=== PATIENT | male | born 1980 | race Caucasian/White ===

== ENCOUNTER 2018-04-08 20:18 | Emergency (ER) | payer MEDICAID ==
[~2018-04-08] VITALS: Ht 200.7 cm; Wt 104.3 kg
[2018-04-08] MEDS ORDERED: CHANTIX1 MG (20:31)
[2018-04-08] MEDS ORDERED: AMARYL2 MG (20:33)
[2018-04-08] MEDS ORDERED: VALIUM5 MG PO (20:33)
[2018-04-08] MEDS ORDERED: LOPRESSOR100 M1 (20:33)
[2018-04-08] MEDS ORDERED: GLUCOPHAGE1000 MG (20:33)
[2018-04-08] MEDS ORDERED: ADVAIR HFA 230M12 GM (20:34)
[2018-04-08] MEDS ORDERED: RISPERDAL 3 MG T3 M1 (20:34)
[2018-04-08] MEDS ORDERED: PROTONIX40 M1 (20:34)
[2018-04-08] MEDS ORDERED: CELEBREX 200 M200 M1 (20:35)
[2018-04-08] MEDS ORDERED: NEURONTIN 300300 M1 (20:35)
[2018-04-08 21:41] LABS: URINE BLOOD NEGATIVE (Negative); URINE CLARITY CLEAR; URINE COLOR YELLOW; URINE GLUCOSE-RANDOM 1+ (Negative); URINE KETONES 1+ (Negative); URINE LEUKOCYTES-REFLEX NEGATIVE (Negative); URINE NITRITE-REFLEX NEGATIVE (Negative); URINE PROTEIN 1+ (Negative); URINE SPECIFIC GRAVITY >= 1.030 (1.005-1.030)
[2018-04-08 21:44] LABS: URINE BILIRUBIN 1+ (Negative)
[2018-04-08 21:45] LABS: ICTOTEST (BILI CONFIRMATORY) Negative (Negative)
[2018-04-08 22:11] LABS: BACTERIA-REFLEX 1-9 Few /HPF (None Seen); CALCIUM OXALATE 4-10 Moderate /LPF (None Seen); CASTS None Seen /LPF (None Seen); CRYSTALS None Seen /LPF (None Seen); MUCUS 4-6 Moderate strn/LPF (None Seen); SQUAMOUS 0-3 Few /LPF (0-3); URINE RBC 0-2 Rare /HPF (0-2); URINE WBC-REFLEX None Seen /HPF (0-5)
[2018-04-08] MEDS ORDERED: NORCO 5-325 TA1 EAC1 PO (22:20)
[2018-04-08] MEDS ORDERED: CIPRO250 M2 PO (22:20)
[2018-04-08] MEDS ORDERED: FLEXERIL PO (22:20)
[2018-04-08 22:46] VITALS: BP 128/86
== END 2018-04-08 22:47 | disposition home or self-care (01) ==
LOC: M.ERS 20:18
PROVIDERS: Nurse Practitioner
DX: N39.0 Urinary tract infection, site not specified (principal); J44.9 Chronic obstructive pulmonary disease, unspecified; K21.9 Gastro-esophageal reflux disease without esophagitis; E11.9 Type 2 diabetes mellitus without complications; F41.0 Panic disorder [episodic paroxysmal anxiety]; I10 Essential (primary) hypertension; F25.0 Schizoaffective disorder, bipolar type; Z88.6 Allergy status to analgesic agent; F17.210 Nicotine dependence, cigarettes, uncomplicated

== ENCOUNTER 2018-06-25 18:21 | Emergency (ER) | payer MEDICAID ==
[~2018-06-25] VITALS: Ht 200.7 cm; Wt 149.7 kg
[~2018-06-25 18:21] MED LIST: ADVAIR HFA 230M12 GM; AMARYL2 MG; CELEBREX 200 M200 M1; CHANTIX1 MG; CIPRO250 M2 PO; FLEXERIL PO; GLUCOPHAGE1000 MG; LOPRESSOR100 M1; NEURONTIN 300300 M1; NORCO 5-325 TA1 EAC1 PO; PROTONIX40 M1; RISPERDAL 3 MG T3 M1; VALIUM5 MG PO
[2018-06-25] MEDS ORDERED: VENTOLIN HFA 1818 GM INH (19:28)
[2018-06-25] MEDS ORDERED: MEDROLDOSEPACK PO (19:28)
[2018-06-25] MEDS ORDERED: ZPAK PO (19:29)
[2018-06-25] MEDS ORDERED: PROMETH-CODEIN 65 ML PO (19:30)
[2018-06-25 19:58] VITALS: BP 139/88
== END 2018-06-25 19:59 | disposition home or self-care (01) ==
LOC: M.ERS 18:21
DX: J20.9 Acute bronchitis, unspecified (principal); R91.1 Solitary pulmonary nodule; J44.9 Chronic obstructive pulmonary disease, unspecified; E11.9 Type 2 diabetes mellitus without complications; K21.9 Gastro-esophageal reflux disease without esophagitis; I10 Essential (primary) hypertension; F41.9 Anxiety disorder, unspecified; Z90.49 Acquired absence of other specified parts of digestive tract; F25.0 Schizoaffective disorder, bipolar type; F17.210 Nicotine dependence, cigarettes, uncomplicated; Z88.8 Allergy status to other drugs, medicaments and biological substances

== ENCOUNTER 2018-07-08 21:02 | Emergency (ER) | payer MEDICAID ==
[~2018-07-08] VITALS: Ht 200.7 cm; Wt 149.7 kg
[~2018-07-08 21:02] MED LIST changes: +MEDROLDOSEPACK PO; +PROMETH-CODEIN 65 ML PO; +VENTOLIN HFA 1818 GM INH; +ZPAK PO
[2018-07-08] MEDS ORDERED: NORCO 5-325 TA1 EACH PO (21:55)
[2018-07-08] MEDS ORDERED: NAPROSYN500 MG PO (21:55)
[2018-07-08] MEDS ORDERED: ROBAXIN 750 MG750 M1 PO (21:55)
[2018-07-08 22:13] VITALS: BP 155/85
== END 2018-07-08 22:14 | disposition home or self-care (01) ==
LOC: M.ERS 21:02
DX: S39.012A Strain of muscle, fascia and tendon of lower back, initial encounter (principal); J44.9 Chronic obstructive pulmonary disease, unspecified; E11.9 Type 2 diabetes mellitus without complications; K21.9 Gastro-esophageal reflux disease without esophagitis; I10 Essential (primary) hypertension; F41.9 Anxiety disorder, unspecified; F25.0 Schizoaffective disorder, bipolar type; Z90.49 Acquired absence of other specified parts of digestive tract; Z88.6 Allergy status to analgesic agent; X50.9XXA Other and unspecified overexertion or strenuous movements or postures, initial encounter; Y93.89 Activity, other specified; Y92.098 Other place in other non-institutional residence as the place of occurrence of the external cause; Y99.8 Other external cause status

== ENCOUNTER 2018-08-30 14:53 | Emergency (ER) | payer MEDICAID ==
[~2018-08-30] VITALS: Ht 200.7 cm; Wt 157.8 kg
[~2018-08-30 14:53] MED LIST changes: +NAPROSYN500 MG PO; +NORCO 5-325 TA1 EACH PO; +ROBAXIN 750 MG750 M1 PO
[2018-08-30 15:23] LABS: URINE BILIRUBIN NEGATIVE (Negative); URINE BLOOD NEGATIVE (Negative); URINE CLARITY CLEAR; URINE COLOR YELLOW; URINE GLUCOSE-RANDOM 3+ (Negative); URINE KETONES NEGATIVE (Negative); URINE LEUKOCYTES-REFLEX NEGATIVE (Negative); URINE NITRITE-REFLEX NEGATIVE (Negative); URINE PROTEIN NEGATIVE (Negative); URINE UROBILINOGEN 0.2 E.U./dl (0.2-1.0)
[2018-08-30 15:24] LABS: HEMATOCRIT 48.8 % (42.0-52.0); HEMOGLOBIN 17.1 gm/dL (14.0-18.0); MCH 31.9 pg (26.0-34.0); MCV 91.1 fL (80.0-100.0); MPV 8.6 fl. (7.2-11.1); NUCLEATED RBCS 0 /100WBC; PLATELET COUNT* 172 thou/uL (150-400); RBC 5.36 mil/uL (4.50-6.00); RDW-CV 13.2 % (10.5-14.5); WBC 9.3 thou/uL (4.0-11.0)
[2018-08-30 15:40] LABS: CALCIUM 9.1 mg/dL (8.5-10.1); POTASSIUM 4.1 mmol/L (3.5-5.1)
[2018-08-30 15:44] LABS: ALBUMIN 3.8 g/dL (3.4-5.0); TOTAL BILIRUBIN 0.4 mg/dL (<0.1-1.0); TOTAL PROTEIN 7.6 g/dL (6.4-8.2)
[2018-08-30 16:03] LABS: ABSOLUTE LYMPHOCYTES 4.7 thou/uL (0.8-5.3); ABSOLUTE MONOCYTES 0.7 thou/uL (0.0-1.2)
[2018-08-30 16:04] LABS: PLATELET ESTIMATE ADEQUATE
[2018-08-30 17:26] VITALS: BP 130/84
== END 2018-08-30 17:26 | disposition home or self-care (01) ==
LOC: M.ERS 14:53
PROVIDERS: Nurse Practitioner Family
DX: R10.12 Left upper quadrant pain (principal); F17.200 Nicotine dependence, unspecified, uncomplicated; J44.9 Chronic obstructive pulmonary disease, unspecified; E11.9 Type 2 diabetes mellitus without complications; K21.9 Gastro-esophageal reflux disease without esophagitis; I10 Essential (primary) hypertension; F41.9 Anxiety disorder, unspecified; F31.9 Bipolar disorder, unspecified; Z90.49 Acquired absence of other specified parts of digestive tract; Z88.6 Allergy status to analgesic agent

== ENCOUNTER 2018-09-04 12:14 | Emergency (ER) | payer MEDICAID ==
[~2018-09-04] VITALS: Ht 200.7 cm; Wt 158.8 kg
[2018-09-04] MEDS ORDERED: ROBAXIN 750 MG750 M1 PO (14:08)
[2018-09-04] MEDS ORDERED: ACETAMINOPHEN-1 EAC1 PO (14:08)
[2018-09-04 14:21] VITALS: BP 147/90
== END 2018-09-04 14:21 | disposition home or self-care (01) ==
LOC: M.ERS 12:14
DX: M54.5 Low back pain (principal); J44.9 Chronic obstructive pulmonary disease, unspecified; E11.9 Type 2 diabetes mellitus without complications; K21.9 Gastro-esophageal reflux disease without esophagitis; I10 Essential (primary) hypertension; F41.9 Anxiety disorder, unspecified; F25.0 Schizoaffective disorder, bipolar type; F17.200 Nicotine dependence, unspecified, uncomplicated; Z88.8 Allergy status to other drugs, medicaments and biological substances

== ENCOUNTER 2018-09-21 20:18 | Emergency (ER) | payer MEDICAID ==
[~2018-09-21] VITALS: Ht 200.7 cm; Wt 158.8 kg
[~2018-09-21 20:18] MED LIST changes: +ACETAMINOPHEN-1 EAC1 PO
[2018-09-21] MEDS ORDERED: INVEGA SUS234 MG/1.5 IM (20:36)
[2018-09-21] MEDS ORDERED: ACETAMINOPHEN-1 EAC1 PO (21:18)
[2018-09-21] MEDS ORDERED: IBUPROFEN 800800 M1 PO (21:26)
[2018-09-21 21:45] VITALS: BP 116/65
== END 2018-09-21 21:47 | disposition home or self-care (01) ==
LOC: M.ERS 20:18
DX: S39.82XA Other specified injuries of lower back, initial encounter (principal); I10 Essential (primary) hypertension; F41.9 Anxiety disorder, unspecified; F25.0 Schizoaffective disorder, bipolar type; K31.84 Gastroparesis; J44.9 Chronic obstructive pulmonary disease, unspecified; E11.9 Type 2 diabetes mellitus without complications; K21.9 Gastro-esophageal reflux disease without esophagitis; F17.210 Nicotine dependence, cigarettes, uncomplicated; Z90.49 Acquired absence of other specified parts of digestive tract; Z88.6 Allergy status to analgesic agent; W00.0XXA Fall on same level due to ice and snow, initial encounter; Y93.89 Activity, other specified; Y92.89 Other specified places as the place of occurrence of the external cause; Y99.8 Other external cause status

== ENCOUNTER 2018-09-27 18:20 | Emergency (ER) | payer MEDICAID ==
[~2018-09-27] VITALS: Ht 200.7 cm; Wt 158.8 kg
[~2018-09-27 18:20] MED LIST changes: +IBUPROFEN 800800 M1 PO; +INVEGA SUS234 MG/1.5 IM
[2018-09-27 20:30] LABS: ABSOLUTE BASOPHILS 0.1 thou/uL (0.0-0.2); ABSOLUTE EOSINOPHILS 0.1 thou/uL (0.0-0.7); ABSOLUTE LYMPHOCYTES 3.1 thou/uL (0.8-5.3); ABSOLUTE MONOCYTES 0.5 thou/uL (0.0-1.2); ABSOLUTE NEUTROPHILS 3.8 thou/uL (1.6-8.1); BASOPHILS 1.4 %; EOSINOPHILS 1.2 %; HEMATOCRIT 48.2 % (42.0-52.0); HEMOGLOBIN 16.8 gm/dL (14.0-18.0); LYMPHOCYTES 40.7 %; MCH 32.2 pg (26.0-34.0); MCHC 34.8 g/dL (28.0-37.0); MCV 92.4 fL (80.0-100.0); MONOCYTES 6.6 %; MPV 8.5 fl. (7.2-11.1); NUCLEATED RBCS 0 /100WBC; PLATELET COUNT* 132 thou/uL (150-400); POLYS 50.1 %; RBC 5.22 mil/uL (4.50-6.00); RDW-CV 13.8 % (10.5-14.5); WBC 7.6 thou/uL (4.0-11.0)
[2018-09-27 20:39] LABS: ANION GAP 7 mmol/L (7-16); BUN 18 mg/dL (7-18); CALCIUM 8.5 mg/dL (8.5-10.1); CHLORIDE 97 mmol/L (98-107); CO2 29 mmol/L (21-32); CREATININE 1.1 mg/dL (0.6-1.3); GLUCOSE 232 mg/dL (70-99); POTASSIUM 4.5 mmol/L (3.5-5.1); SODIUM 133 mmol/L (136-145)
[2018-09-27 20:46] LABS: INFLUENZA A ANTIGEN None Detected (None Detect); INFLUENZA B ANTIGEN None Detected (None Detect)
[2018-09-27 20:46] LABS: ALBUMIN 3.3 g/dL (3.4-5.0); ALKALINE PHOSPHATASE 94 U/L (46-116); SGOT 52 U/L (15-37); SGPT 63 U/L (30-65); TOTAL BILIRUBIN 0.5 mg/dL (<0.1-1.0); TOTAL PROTEIN 6.8 g/dL (6.4-8.2); TROPONIN-I LEVEL <0.06 ng/mL (<0.06)
[2018-09-27] MEDS ORDERED: MEDROLDOSEPACK PO (21:11)
[2018-09-27] MEDS ORDERED: ZPAK PO (21:11)
[2018-09-27] MEDS ORDERED: VENTOLIN HFA 1818 GM INH (21:11)
[2018-09-27] MEDS ORDERED: TESSALON PERLE100 MG PO (21:11)
[2018-09-27 21:36] VITALS: BP 142/86
--- NOTE | 2018-09-28 13:06 | EKG ---
[place] [address] ELECTROCARDIOGRAM REPORT Name: SHAGGY ZAPATA [id number] Admission: 09/27/18 Attend Phys: Discharge: 09/27/18 Date of : 76 Report #: [id number] THIS REPORT FOR: //name// [facility] ED Test Date: 2018-09-27 Test Time: 21:07:14 Pat Name: SHAGGY ZAPATA Department: Room: Gender: M Dough Mixer: MAICO : 1980 Requested By: Gifty Zavaleta Order Number: [id number] MD: Mariano Glez Measurements Intervals [place] Rate: 99 P: 48 AL: 169 QRS: 20 QRSD: 85 T: 124 QT: 349 QTc: 448 Interpretive Statements Sinus rhythm Left atrial enlargement Abnormal R-wave progression, early transition Nonspecific T abnormalities, lateral leads No previous ECG available for comparison Electronically Signed On 09-28-2018 13:06:32 E LEARNING [employer] by Mariano Glez [email or web address] <ELECTRONICALLY SIGNED> By: Mariano Glez MD, [facility] 09/28/18 1306 [id number] 06 Mariano Glez MD, FACC /EPI
== END 2018-09-27 21:37 | disposition home or self-care (01) ==
LOC: M.ERS 18:20
PROVIDERS: Nurse Practitioner Family
DX: J20.9 Acute bronchitis, unspecified (principal); M94.0 Chondrocostal junction syndrome [Tietze]; J44.9 Chronic obstructive pulmonary disease, unspecified; E11.9 Type 2 diabetes mellitus without complications; K21.9 Gastro-esophageal reflux disease without esophagitis; I10 Essential (primary) hypertension; F41.9 Anxiety disorder, unspecified; F25.0 Schizoaffective disorder, bipolar type; K31.84 Gastroparesis; F17.210 Nicotine dependence, cigarettes, uncomplicated; Z90.49 Acquired absence of other specified parts of digestive tract; Z88.6 Allergy status to analgesic agent

== ENCOUNTER 2018-10-23 15:00 | Emergency (ER) | payer MEDICAID ==
[~2018-10-23] VITALS: Ht 200.7 cm; Wt 154.2 kg
[~2018-10-23 15:00] MED LIST changes: +TESSALON PERLE100 MG PO
[2018-10-23] MEDS ORDERED: NORCO 5-325 TA1 EACH PO (15:19)
[2018-10-23 15:24] VITALS: BP 153/99
== END 2018-10-23 15:25 | disposition home or self-care (01) ==
LOC: M.ERS 15:00
DX: M54.5 Low back pain (principal); J44.9 Chronic obstructive pulmonary disease, unspecified; E11.9 Type 2 diabetes mellitus without complications; K21.9 Gastro-esophageal reflux disease without esophagitis; I10 Essential (primary) hypertension; F41.9 Anxiety disorder, unspecified; K31.84 Gastroparesis; F25.0 Schizoaffective disorder, bipolar type; Z88.6 Allergy status to analgesic agent; Z90.49 Acquired absence of other specified parts of digestive tract

== ENCOUNTER 2019-01-03 10:55 | Emergency (ER) | payer MEDICAID ==
[~2019-01-03] VITALS: Ht 200.7 cm; Wt 154.2 kg
[2019-01-03] MEDS ORDERED: DOK100 MG PO (11:15)
[2019-01-03] MEDS ORDERED: ROBAXIN500 MG PO (11:15)
[2019-01-03] MEDS ORDERED: IPRAT-ALBUT 0.5-3 ML INH (13:30)
[2019-01-03] MEDS ORDERED: MEDROLDOSEPACK PO (13:30)
[2019-01-03] MEDS ORDERED: AMOXICILLIN875 MG PO (13:30)
[2019-01-03] MEDS ORDERED: NEBULIZER MISCELL (13:30)
[2019-01-03 14:10] VITALS: BP 133/84
== END 2019-01-03 14:11 | disposition home or self-care (01) ==
LOC: M.ERS 10:55
DX: J44.1 Chronic obstructive pulmonary disease with (acute) exacerbation (principal); E11.9 Type 2 diabetes mellitus without complications; K21.9 Gastro-esophageal reflux disease without esophagitis; I10 Essential (primary) hypertension; F41.9 Anxiety disorder, unspecified; Z90.49 Acquired absence of other specified parts of digestive tract; F17.210 Nicotine dependence, cigarettes, uncomplicated

== ENCOUNTER 2019-01-21 10:29 | Emergency (ER) | payer MEDICAID ==
[~2019-01-21] VITALS: Ht 200.7 cm; Wt 154.2 kg
[~2019-01-21 10:29] MED LIST changes: +AMOXICILLIN875 MG PO; +DOK100 MG PO; +IPRAT-ALBUT 0.5-3 ML INH; +NEBULIZER MISCELL; +ROBAXIN500 MG PO
[2019-01-21 10:39] VITALS: BP 149/92
[2019-01-21] MEDS ORDERED: PENICILLIN V P500 MG PO (10:47)
[2019-01-21] MEDS ORDERED: NORCO 5-325 TA1 EAC1 PO (10:47)
== END 2019-01-21 10:55 | disposition home or self-care (01) ==
LOC: M.ERS 10:29
DX: M27.3 Alveolitis of jaws (principal); J44.9 Chronic obstructive pulmonary disease, unspecified; E11.9 Type 2 diabetes mellitus without complications; K21.9 Gastro-esophageal reflux disease without esophagitis; I10 Essential (primary) hypertension; F41.9 Anxiety disorder, unspecified; F31.9 Bipolar disorder, unspecified; Z90.49 Acquired absence of other specified parts of digestive tract; F17.210 Nicotine dependence, cigarettes, uncomplicated